=== PATIENT | female | born 1995 ===

== ENCOUNTER 2025-11-05 05:21 | Emergency (ER) | payer SELFPAY ==
[2025-11-05 05:23] VITALS: BMI 21.2
[2025-11-05 05:35] VITALS: BP 131/90; PULSE 82; RESP 18; TEMP 36.9; O2SAT 98
--- NOTE | 2025-11-05 05:44 | EDRME_ITS ---
Rapid Medical Screening Exam RME Arrival date/time: 11/05/25 05:21 30F with history of psych (stopped taking meds about 6 months ago; combo of Seroquel and venlafaxine) presents to ED trying to see what psychiatric services are available as she recently moved here from [place], where her old psychiatrist/prescriber was. Patient denies SI/HI and has a safe place to be at home. Patient has had more life stressors recently. When told there is a crisis team available in the morning, patient states she would prefer to go and will reach back out to her old psychiatrist. Chief Complaint: Psychiatric Symptoms Vital signs: Vital Signs Temperature 98.4 F 11/05/25 05:35 Pulse Rate 82 11/05/25 05:35 Respiratory Rate 18 11/05/25 05:35 Blood Pressure 131/90 H 11/05/25 05:35 Pulse Oximetry (%) 98 11/05/25 05:35 Oxygen Delivery Method Room Air 11/05/25 05:35 Exam: Overall calm, but did start tearing up when saying she has been more stressed recently Clinical Impression: psych vs drug/alcohol vs stress reaction
== END 2025-11-05 05:45 | disposition left against medical advice (07) ==
LOC: SERX 06:03
PROVIDERS: Emergency Provider Emergency Medicine
DX: Z00.8 Encounter for other general examination (principal); Z73.3 Stress, not elsewhere classified; Z53.29 Procedure and treatment not carried out because of patient's decision for other reasons
CPT/HCPCS: 99281